=== PATIENT | female | born 1945 | race Caucasian/White ===

== ENCOUNTER 2025-03-20 11:19 | Outpatient (CLI) | payer MEDICARE, SELFPAY ==
--- NOTE | 2025-03-20 11:15 | RT.EKG_ITS ---
APPROVED REPORT Exam: Resting ECG Reason for Exam: afib Patient Location: O HR:116 bpm ECG Measurements Heart Rate 116 AXIS AK 150 P 0 QRSd 87 QRS -20 QT 308 T 148 QTc 428 Conclusion Atrial fibrillation Diffuse nondiagnostic ST-T abnormalities
== END 2025-03-20 11:20 | disposition home or self-care (01) ==
LOC: DI.CARD 11:24
PROVIDERS: PCP Physician Assistant Medical; Visit Provider Internal Medicine Cardiovascular Disease
DX: I48.91 Unspecified atrial fibrillation (principal); I10 Essential (primary) hypertension; R06.02 Shortness of breath
CPT/HCPCS: 93010

== ENCOUNTER → 2025-03-20 11:24 | Outpatient (BNVA) | payer MEDICARE, SELFPAY | PROVIDERS: PCP Physician Assistant Medical; Referring Provider Physician Assistant Medical; Visit Provider Internal Medicine Cardiovascular Disease | DX: I48.91 Unspecified atrial fibrillation (principal); I10 Essential (primary) hypertension; R06.02 Shortness of breath; Z79.899 Other long term (current) drug therapy; Z79.01 Long term (current) use of anticoagulants | CPT/HCPCS: 99204; 93005 ==